=== PATIENT | male | born 1980 ===

== ENCOUNTER 2017-04-10 20:53 | Emergency (ER) | payer SELFPAY ==
[2017-04-10 21:31] VITALS: BP 132/82; PULSE 67; RESP 18; TEMP 98.1; O2SAT 99
--- NOTE | 2017-04-10 23:29 | ED PDOC ---
HPI: Skin/Bite Injury Time Seen by Provider: 04/10/17 23:12 Chief Complaint (Nursing): Eye Problem Chief Complaint (Provider): Skin Abnormality History Per: Patient History/Exam Limitations: no limitations Onset/Duration Of Symptoms: Days (x2-3 days) Current Symptoms Are (Timing): Still Present Location Of Injury: Right: Head, Anterior: Head Quality Of Symptoms: Other (Erythematous) Additional Complaint(s): 36 year old male presents to ED with complaints of a skin abnormality x2-3 days and has no past medical history. Patient notes having a pimple on the right evangelical area, which then spread to multiple pimples by his right evangelical and right scalp. Patient notes that onset of right eyelid swelling prompted desire for evaluation. Patient notes that area is tender and painful but denies discharge from the area. (-) blurry vision, visual changes, numbness, tingling, headache, dizziness, or neck pain. PCP: None Past Medical History Reviewed: Historical Data, Nursing Documentation, Vital Signs Vital Signs: Last Vital Signs Temp 98.1 F 04/10/17 21:28 Pulse 67 04/10/17 21:28 Resp 18 04/10/17 21:28 BP 132/82 04/10/17 21:28 Pulse Ox 99 04/10/17 23:46 - Surgical History Surgical History: No Surg Hx - Family History Family History: States: Unknown Family Hx - Living Arrangements Living Arrangements: With Family - Home Medications Home Medications: Ambulatory Orders Medication Instructions Recorded Famciclovir [Famvir] 500 mg PO BID 7 Days tab 04/11/17 - Allergies Allergies/Adverse Reactions: Allergies Allergy/AdvReac Type Severity Reaction Status Date / Time No Known Allergies Allergy Verified 04/10/17 21:31 Review of Systems ROS Statement: Except As Marked, All Systems Reviewed And Found Negative Eyes: Positive for: Eyelid Inflammation (right eyelid swelling). Negative for: Vision Change Musculoskeletal: Negative for: Neck Pain Skin: Positive for: Other (multiple pimples to the right evangelical and scalp area. (-) discharge) Neurological: Negative for: Numbness ((-) tingling), Headache, Dizziness Physical Exam - Reviewed Nursing Documentation Reviewed: Yes Vital Signs Reviewed: Yes - Physical Exam Appears: Positive for: Non-toxic, No Acute Distress Head Exam: Positive for: ATRAUMATIC, NORMOCEPHALIC. Negative for: NORMAL INSPECTION (Several vesicular-type bumps on the right side of the forehead. Bumps span from the central aspect of the forehead to the right evangelical and scalp area. All nontender and mildly erythematous. No discharge noted.) Skin: Positive for: Warm, Dry. Negative for: Rash Eye Exam: Positive for: EOMI, PERRL, Other (flueorescein uptake in dendritic pattern). Negative for: Normal appearance (right upper eyelid swelling) ENT: Positive for: Normal ENT Inspection (No vesicular lesions on nose of middle /lower hald of right face) Neck: Positive for: Normal, Painless ROM, Supple Cardiovascular/Chest: Positive for: Regular Rate, Rhythm. Negative for: Murmur Respiratory: Positive for: Normal Breath Sounds. Negative for: Respiratory Distress Gastrointestinal/Abdominal: Positive for: Soft. Negative for: Tenderness Back: Positive for: Normal Inspection. Negative for: L CVA Tenderness, R CVA Tenderness Extremity: Positive for: Normal ROM. Negative for: Tenderness, Deformity Neurologic/Psych: Positive for: Alert, equal opportunity officer II-XII, Oriented. Negative for: Motor/Sensory Deficits, Aphasia, Facial Droop - ECG O2 Sat by Pulse Oximetry: 99 (RA) Pulse Ox Interpretation: Normal - Progress ED Course And Treament: 2350: Spoke with Dr. Fletcher. Made aware of findings, presentation, and physical exam. States to put pt. on famvir 500mg po bid and see him tomorrow 9am. Pt. aware and will fu accordingly. Medical Decision Making Medical Decision Makin Initial impression: shingles [id number] 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 Dr. Fletcher denies need for admission. States to put patient on Famvir 500mg BID and to have patient follow up 9 am 04/11/17 in his office. Patient fully understands complications if he does not follow up and agrees to see Dr. Fletcher tomorrow at 9 am. Scribe Attestation: Documented by Michelle Grimes acting as a scribe for Obi Aguirre MD. Scribe Attestation: All medical record entries made by the Scribe were at my direction and personally dictated by me. I have reviewed the chart and agree that the record accurately reflects my personal performance of the history, physical exam, medical decision making, and the department course for this patient. I have also personally directed, reviewed, and agree with the discharge instructions and disposition. Disposition - Clinical Impression Clinical Impression: Herpes zoster ophthalmicus Discussed With Dr.: Pedro Fletcher Doctor Will See Patient In The: Office Counseled Patient/Family Regarding: Diagnosis, Need For Followup, Rx Given - Disposition Referrals: Pedro Fletcher MD [Staff Provider] - 04/11/17 (See the eye doctor at 9am in his office without fail.) Disposition: Routine/Home Disposition Time: 23:30 Condition: STABLE Additional Instructions: Return if not better in 3 days. See the eye doctor without fail. Prescriptions: Famciclovir [Famvir] 500 mg PO BID 7 Days tab Instructions: Shingles (ED) Forms: [facility] (Romanian) Print Language: FRENCH - POA Present On Arrival: None
== END 2017-04-11 00:54 | disposition home or self-care (01) ==
LOC: H.ER 20:53
DX: B02.30 Zoster ocular disease, unspecified (principal)